=== PATIENT | male | born 1970 | race Two or more races ===

== ENCOUNTER → 2023-11-09 | Outpatient (CLI) | payer MEDICARE ==
[2023-11-09 13:22] LABS: INR 2.42 (0.9-1.15)
== END | disposition home or self-care (01) ==
LOC: LAB 12:51
DX: Z51.81 Encounter for therapeutic drug level monitoring (principal); Z79.01 Long term (current) use of anticoagulants; Z95.811 Presence of heart assist device
CPT/HCPCS: 36415; 85610

== ENCOUNTER → 2023-11-16 | Outpatient (CLI) | payer MEDICARE ==
[2023-11-16 12:22] LABS: INR 2.66 (0.9-1.15); Prothrombin Time 26.2 sec (9.3-11.8)
== END | disposition home or self-care (01) ==
LOC: LAB 11:53
DX: Z51.81 Encounter for therapeutic drug level monitoring (principal); Z79.01 Long term (current) use of anticoagulants; Z95.811 Presence of heart assist device
CPT/HCPCS: 36415; 85610